=== PATIENT | female | born 1975 | race Caucasian/White ===

== ENCOUNTER 2017-08-15 15:25 | Emergency (ER) | payer MEDICAID ==
[~2017-08-15] VITALS: Ht 172.7 cm; Wt 119.0 kg
[2017-08-15] MEDS ORDERED: ALBUTEROL/IPRATROPIUM 2.5MG/0.5MG, 3 ML NPPB ONE (16:00)
[2017-08-15 16:49] LABS: HEMATOCRIT 44.6 % (34.6-47.8); WHITE BLOOD COUNT 8.2 x10^3/uL (3.4-10)
[2017-08-15 17:00] LABS: BLOOD UREA NITROGEN 14 mg/dL (7-18)
[2017-08-15] MEDS ORDERED: ALBUTEROL/IPRATROPIUM 2.5MG/0.5MG, 3 ML ONE (17:09)
[2017-08-15] MEDS ORDERED: ALBU18HF INH (18:09)
[2017-08-15 18:45] VITALS: BP 150/92
== END 2017-08-15 18:47 | disposition home or self-care (01) ==
LOC: ED 16:56
DX: J45.901 Unspecified asthma with (acute) exacerbation (principal); F17.210 Nicotine dependence, cigarettes, uncomplicated; Z88.8 Allergy status to other drugs, medicaments and biological substances
CPT/HCPCS: 36415; 71020; 80048; 82040; 85025; 93005; 94640; 99285; J7512; J7620

== ENCOUNTER 2018-05-25 17:44 | Emergency (ER) | payer SELFPAY ==
[~2018-05-25] VITALS: Ht 174 cm; Wt 125.1 kg
[~2018-05-25 17:44] MED LIST: ALBU18HF INH
[2018-05-25] MEDS ORDERED: ASPIRIN 81 MG TABLET CHEW PO ONE (18:30)
[2018-05-25] MEDS ORDERED: SODIUM CHLORIDE FLUSH 10ML SYR IVF ONE (18:30)
[2018-05-25] MEDS ORDERED: ASPIRIN 81 MG TABLET CHEW ONE (18:36)
[2018-05-25 18:39] LABS: BASOPHILS # (AUTO) 0.04 x10^3/uL (0-0.1); BASOPHILS % (AUTO) 0 % (0-1); EOSINOPHILS # (AUTO) 0.09 x10^3/uL (0-0.4); EOSINOPHILS % (AUTO) 1 % (1-7); LYMPHOCYTES # (AUTO) 3.31 x10^3/uL (1-3.4); LYMPHOCYTES % (AUTO) 33 % (22-44); MD NO; MEAN CORPUSCULAR HEMOGLOBIN 31.9 pg (27.0-34.8); MEAN CORPUSCULAR HGB CONC 34.8 g/dL (32.4-35.8); MEAN CORPUSCULAR VOLUME 91.6 fL (80-100); MEAN PLATELET VOLUME 8.6 fL (7.4-10.4); MONOCYTES # (AUTO) 0.44 x10^3/uL (0.2-0.8); MONOCYTES % (AUTO) 5 % (2-9); NEUTROPHILS # (AUTO) 6.05 x10^3/uL (1.8-6.8); NEUTROPHILS % (AUTO) 61 % (42-75); PLATELET COUNT 227 x10^3/uL (130-400); RED BLOOD COUNT 4.75 x10^6/uL (3.82-5.3); RED CELL DISTRIBUTION WIDTH 13.3 % (9.6-15.2)
[2018-05-25 18:48] LABS: ALBUMIN 3.4 g/dL (3.4-5.0); ANION GAP 9 mmol/L (5-15); CALCIUM 8.4 mg/dL (8.5-10.1); CHLORIDE 111 mmol/L (98-107)
[2018-05-25 18:52] LABS: TROPONIN I < 0.015 ng/mL (0.000-0.045)
[2018-05-25 19:49] VITALS: BP 146/86
== END 2018-05-25 19:51 | disposition home or self-care (01) ==
LOC: ED 18:20
DX: R06.00 Dyspnea, unspecified (principal); R00.2 Palpitations; I10 Essential (primary) hypertension; J45.909 Unspecified asthma, uncomplicated
CPT/HCPCS: 36415; 71045; 80048; 82040; 84484; 85025; 85379; 93005; 99285

== ENCOUNTER 2019-01-30 16:02 | Emergency (ER) | payer OTHER ==
[~2019-01-30] VITALS: Ht 172.7 cm; Wt 122.0 kg
--- NOTE | 2019-01-30 16:16 | NUR ---
43 YR OLD FEMALE ARRIVE VIA EMS WITH C/O "INTERMITTENT CHEST DISCOMFORT FOR 5 DAYS. TODAY WOKE UP WITH CP 0400. WENT OUT TO SMOKE A CIGAR AT 0800, HEART FELT LIKE IT WAS IN A VISE. ALSO WITH INTERMITTENT NAUSEA FOR 5 DAYS." PER REPORT PT DX WITH LBBB IN APRIL. DENIES OTHER HX.
--- NOTE | 2019-01-30 16:18 | NUR ---
HECTOR DILLON AT BEDSIDE TO EVAL PT
[2019-01-30] MEDS ORDERED: IBUP-11 PO (16:25)
[2019-01-30] MEDS ORDERED: ASPI81TA50 PO (16:25)
[2019-01-30] MEDS ORDERED: ASPI1TAB31 PO (16:25)
[2019-01-30] MEDS ORDERED: TYLENOL PM (16:27)
[2019-01-30] MEDS ORDERED: SODIUM CHLORIDE FLUSH 10ML SYR IVF ONE (16:30)
[2019-01-30] MEDS ORDERED: MORPHINE SULFATE 4 MG/ML, 1ML IVPush PRN (16:30)
[2019-01-30] MEDS ORDERED: ONDANSETRON 2MG/ML, 2ML IVPush ONE (16:30)
[2019-01-30] MEDS ORDERED: KETOROLAC 30 MG/1 ML IVPush STA (16:35)
[2019-01-30] MEDS ORDERED: KETOROLAC 30 MG/1 ML ONE (16:38)
[2019-01-30] MEDS ORDERED: ONDANSETRON 2MG/ML, 2ML ONE (16:38)
[2019-01-30 17:05] LABS: BASOPHILS # (AUTO) 0.08 x10^3/uL (0-0.1); BASOPHILS % (AUTO) 1 % (0-1); EOSINOPHILS # (AUTO) 0.07 x10^3/uL (0-0.4); EOSINOPHILS % (AUTO) 1 % (1-7); LYMPHOCYTES # (AUTO) 3.04 x10^3/uL (1-3.4); LYMPHOCYTES % (AUTO) 27 % (22-44); MD NO; MEAN CORPUSCULAR HEMOGLOBIN 30.7 pg (27.0-34.8); MEAN CORPUSCULAR HGB CONC 32.4 g/dL (32.4-35.8); MEAN CORPUSCULAR VOLUME 94.8 fL (80-100); MEAN PLATELET VOLUME 9.1 fL (7.4-10.4); MONOCYTES # (AUTO) 0.52 x10^3/uL (0.2-0.8); MONOCYTES % (AUTO) 5 % (2-9); NEUTROPHILS # (AUTO) 7.48 x10^3/uL (1.8-6.8); NEUTROPHILS % (AUTO) 67 % (42-75); PLATELET COUNT 231 x10^3/uL (130-400); RED BLOOD COUNT 5.17 x10^6/uL (3.82-5.3); RED CELL DISTRIBUTION WIDTH 13.6 % (9.6-15.2)
[2019-01-30 17:14] LABS: ANION GAP 8 mmol/L (5-15); CALCIUM 9.1 mg/dL (8.5-10.1); CHLORIDE 112 mmol/L (98-107)
[2019-01-30 17:20] LABS: ALANINE AMINOTRANSFERASE 19 U/L (12-78); ALKALINE PHOSPHATASE 53 U/L (45-117); CREATININE 0.86 mg/dL (0.55-1.02); TOTAL PROTEIN 7.4 g/dL (6.4-8.2); TROPONIN I < 0.015 ng/mL (0.000-0.045)
--- NOTE | 2019-01-30 18:12 | NUR ---
NO ACUTE DISTRESS NOTED. PAIN DECREASED TO 5/10. NO C/O N/V. IV DC'D WITH CANNULA INTACT, REVIEWED DC INSTRUCTIONS WITH PT, UNDERSTANDING VERBALIZED. PT LEFT AMB, GAIT STEADY.
[2019-01-30 18:13] VITALS: BP 172/92
== END 2019-01-30 18:15 | disposition home or self-care (01) ==
LOC: ED 17:13
DX: R07.2 Precordial pain (principal)
CPT/HCPCS: 36415; 71045; 80053; 84484; 85025; 93005; 96374; 96375; 99284; J1885; J2405

== ENCOUNTER 2019-07-09 10:34 | Emergency (ER) | payer OTHER ==
[~2019-07-09] VITALS: Ht 172.7 cm; Wt 82.7 kg
[~2019-07-09 10:34] MED LIST changes: +ASPI1TAB31 PO; +ASPI81TA50 PO; +IBUP-11 PO; +TYLENOL PM
--- NOTE | 2019-07-09 10:54 | NUR ---
PT HERE WITH PRIMARY C/O OF MIGRAINES. PT STATES SHE HAS A HX MIGRAINES AND HAS INTERMITTENTLY HAD TO COME TO THE ER FOR PAIN CONTROL. PT STATES NAUSEA, DIZZINESS, AND PHOTOPHOBIA. PT ALSO STATES THAT USUALLY OTC MEDS WORK BUT TODAY THEY DID NOT. PT AAO X 4, NAD, ROOM AIR, CALL LIGHT WITHIN REACH. SIDERAIL X [address] PT DRESSED IN GOWN AND ATTACHED TO MONITOR, MEDICAL STUDENT AT BEDSIDE FOR EXAM AND EVALUATION.
[2019-07-09] MEDS ORDERED: METOCLOPRAMIDE 5 MG/ML, 2ML IVPush ONE (11:30)
[2019-07-09] MEDS ORDERED: KETOROLAC 30 MG/1 ML IVPush ONE (11:30)
[2019-07-09] MEDS ORDERED: SODIUM CHLORIDE 0.9% 1,000ML IVBOLUS ONE (11:30)
[2019-07-09] MEDS ORDERED: DIPHENHYDRAMINE 50 MG/ML, 1ML IVPush ONE (11:30)
[2019-07-09] MEDS ORDERED: SODIUM CHLORIDE FLUSH 10ML SYR IVF ONE (11:30)
[2019-07-09 11:35] LABS: BASOPHILS # (AUTO) 0.07 x10^3/uL (0-0.1); BASOPHILS % (AUTO) 1 % (0-1); EOSINOPHILS # (AUTO) 0.13 x10^3/uL (0-0.4); EOSINOPHILS % (AUTO) 1 % (1-7); LYMPHOCYTES # (AUTO) 1.99 x10^3/uL (1-3.4); LYMPHOCYTES % (AUTO) 22 % (22-44); MD NO; MEAN CORPUSCULAR HEMOGLOBIN 31.3 pg (27.0-34.8); MEAN CORPUSCULAR HGB CONC 33.5 g/dL (32.4-35.8); MEAN CORPUSCULAR VOLUME 93.5 fL (80-100); MEAN PLATELET VOLUME 7.9 fL (7.4-10.4); MONOCYTES # (AUTO) 0.38 x10^3/uL (0.2-0.8); MONOCYTES % (AUTO) 4 % (2-9); NEUTROPHILS % (AUTO) 71 % (42-75); PLATELET COUNT 300 x10^3/uL (130-400); RED BLOOD COUNT 4.72 x10^6/uL (3.82-5.3); RED CELL DISTRIBUTION WIDTH 13.4 % (9.6-15.2)
[2019-07-09 11:48] LABS: ALANINE AMINOTRANSFERASE 33 U/L (12-78); ALBUMIN 3.5 g/dL (3.4-5.0); ANION GAP 6 mmol/L (5-15); CALCIUM 8.5 mg/dL (8.5-10.1); CHLORIDE 110 mmol/L (98-107); CREATININE 0.69 mg/dL (0.55-1.02)
[2019-07-09 11:50] LABS: ALKALINE PHOSPHATASE 65 U/L (45-117); BILIRUBIN,TOTAL 0.5 mg/dL (0.2-1.0); TOTAL PROTEIN 6.6 g/dL (6.4-8.2)
--- NOTE | 2019-07-09 12:16 | NUR ---
PIV ESTABLISHED BY THIS RN.
[2019-07-09] MEDS ORDERED: DIPHENHYDRAMINE 50 MG/ML, 1ML ONE (12:33)
[2019-07-09] MEDS ORDERED: KETOROLAC 30 MG/1 ML ONE (12:34)
[2019-07-09] MEDS ORDERED: METOCLOPRAMIDE 5 MG/ML, 2ML ONE (12:34)
--- NOTE | 2019-07-09 12:41 | NUR ---
PT MEDICATED PER ORDERS.
--- NOTE | 2019-07-09 13:18 | NUR ---
ALL RESULTS BACK AT THIS TIME, CHART UP FOR RECHECK.
[2019-07-09 14:00] VITALS: BP 161/84
--- NOTE | 2019-07-09 14:19 | NUR ---
Patient/Caregiver given discharge instructions and they have confirmed that they understand the instructions. Patient ambulatory with steady gait. PIV removed tip intact.
== END 2019-07-09 19:38 | disposition home or self-care (01) ==
LOC: ED 11:39
DX: R51 Headache (principal); I10 Essential (primary) hypertension; J45.909 Unspecified asthma, uncomplicated; F31.9 Bipolar disorder, unspecified; F98.8 Other specified behavioral and emotional disorders with onset usually occurring in childhood and adolescence; Z90.49 Acquired absence of other specified parts of digestive tract
CPT/HCPCS: 36415; 80053; 83690; 85025; 96361; 96374; 96375; 99283; J1200; J1885; J2765; J7030

== ENCOUNTER 2019-10-25 13:04 | Emergency (ER) | payer MEDICAID ==
[~2019-10-25] VITALS: Ht 175.3 cm; Wt 111.0 kg
[2019-10-25 13:55] LABS: BASOPHILS # (AUTO) 0.04 x10^3/uL (0-0.1); BASOPHILS % (AUTO) 1 % (0-1); EOSINOPHILS # (AUTO) 0.04 x10^3/uL (0-0.4); EOSINOPHILS % (AUTO) 1 % (1-7); LYMPHOCYTES # (AUTO) 1.62 x10^3/uL (1-3.4); LYMPHOCYTES % (AUTO) 32 % (22-44); MD NO; MEAN CORPUSCULAR HEMOGLOBIN 30.5 pg (27.0-34.8); MEAN CORPUSCULAR HGB CONC 33.6 g/dL (32.4-35.8); MEAN CORPUSCULAR VOLUME 90.7 fL (80-100); MEAN PLATELET VOLUME 8.5 fL (7.4-10.4); MONOCYTES # (AUTO) 0.43 x10^3/uL (0.2-0.8); MONOCYTES % (AUTO) 8 % (2-9); NEUTROPHILS # (AUTO) 2.95 x10^3/uL (1.8-6.8); NEUTROPHILS % (AUTO) 58 % (42-75); PLATELET COUNT 187 x10^3/uL (130-400); RED CELL DISTRIBUTION WIDTH 14.3 % (9.6-15.2)
--- NOTE | 2019-10-25 13:56 | NUR ---
Pt to ER with c/o sore throat x 1 wk getting progressively worse and onset of CP & palpitations this morning at 1000. Placed on cardiac, NIBP & SPO2 monitors. Rates pain as 3/10, no radiation. Labs being drawn at this time.
[2019-10-25] MEDS ORDERED: ASPIRIN 81 MG TABLET CHEW PO ONE (14:00)
[2019-10-25] MEDS ORDERED: ASPIRIN 81 MG TABLET CHEW ONE (14:01)
[2019-10-25 14:02] LABS: ALANINE AMINOTRANSFERASE 19 U/L (12-78); ALBUMIN 3.5 g/dL (3.4-5.0); ANION GAP 5 mmol/L (5-15); CALCIUM 8.3 mg/dL (8.5-10.1); CHLORIDE 115 mmol/L (98-107); CREATININE 0.82 mg/dL (0.55-1.02)
[2019-10-25 14:07] LABS: ALKALINE PHOSPHATASE 50 U/L (45-117); BILIRUBIN,TOTAL 0.3 mg/dL (0.2-1.0); TOTAL PROTEIN 6.7 g/dL (6.4-8.2); TROPONIN I < 0.015 ng/mL (0.000-0.045)
[2019-10-25 15:17] VITALS: BP 176/96
--- NOTE | 2019-10-25 15:17 | NUR ---
Pt d/c home. Denies CP/palp at time of d/c. BP recheck elevated. Pt states she has hx of HTN & that she will f/u with a PCP about it.
== END 2019-10-25 15:19 | disposition home or self-care (01) ==
LOC: ED 13:49
DX: R07.89 Other chest pain (principal); J02.8 Acute pharyngitis due to other specified organisms; B97.89 Other viral agents as the cause of diseases classified elsewhere; I10 Essential (primary) hypertension; F17.200 Nicotine dependence, unspecified, uncomplicated; Z90.49 Acquired absence of other specified parts of digestive tract
CPT/HCPCS: 36415; 71045; 80053; 83690; 84484; 84703; 85025; 87081; 87147; 87880; 93005; 99284